=== PATIENT | male | born 1950 | race Caucasian/White ===

== ENCOUNTER 2021-05-21 12:50 | Inpatient (IN) | payer OTHER ==
[~2021-05-21] VITALS: Ht 172.7 cm; Wt 72.3 kg
[2021-05-21] MEDS ORDERED: methylPREDNISolone SOD SUCC 125 MG/2 ML VL IV ONE (13:00)
[2021-05-21 13:48] LABS: Basophils # (auto) 0 10 ^3/uL (0-0.2); Basophils % (auto) 0.8 % (0.0-2.0); Eosinophils # (auto) 0.1 10 ^3/uL (0-0.8); Eosinophils % (auto) 1.6 % (0.0-7.0); Hematocrit 41.7 % (41.0-53.0); Hemoglobin 13.7 g/dL (13.5-17.5); Lymphocytes # (auto) 1.3 10 ^3/uL (0.4-5.4); Lymphocytes % (auto) 20.2 % (10.0-50.0); Mean Corpuscular Hemoglobin 30.7 pg (28.0-32.0); Mean Corpuscular Hgb Conc. 32.8 g/dL (32.0-36.0); Mean Corpuscular Volume 93.6 fL (80.0-100.0); Monocytes # (auto) 0.6 10 ^3/uL (0-1.3); Monocytes % (auto) 10.4 % (0.0-12.0); Neutrophils # (auto) 4.2 10 ^3/uL (1.6-8.6); Red Blood Cells 4.45 10^6/uL (4.5-5.90); Red Cell Distribution Width 16.3 % (11.8-14.3); White Blood Cell 6.2 10^3/uL (4.4-10.8)
[2021-05-21 13:52] LABS: Albumin 3.3 g/dL (3.4-5.0); Anion Gap 6 (5-15); Blood Urea Nitrogen 26 mg/dL (7-18); Calcium 8.8 mg/dL (8.5-10.1); Carbon Dioxide 25 mmol/L (21-32); Chloride 102 mmol/L (98-107); Glucose 109 mg/dL (74-106); Potassium 4.4 mmol/L (3.5-5.1); Sodium 133 mmol/L (136-145)
[2021-05-21 14:01] LABS: Alanine Aminotransferase 34 U/L (16-61); Alkaline Phosphatase 61 U/L (45-117); Aspartate Aminotransferase 21 U/L (15-37); BUN/Creatinine Ratio 32.9; Bilirubin, Total 0.4 mg/dL (0.2-1.0); CRP High Sensitivity 6.99 mg/dL (< 0.3); GFR African American 125 mL/min; GFR Non-African American 104 mL/min
[2021-05-21] MEDS ORDERED: ONDANSETRON HCL 4 MG/2 ML VIAL IV PRN (15:45)
[2021-05-21] MEDS ORDERED: MORPHINE SULFATE INJECTION 2 MG/ML SYRG IV PRN (15:45)
[2021-05-21] MEDS ORDERED: ACETAMINOPHEN 325 MG TAB PO PRN ×2 (15:45)
[2021-05-21] MEDS ORDERED: NITROGLYCERIN 0.4 MG SL TAB SL PRN (15:45)
[2021-05-21] MEDS ORDERED: IOHEXOL 350 MG/ML 100ML IJ ONE (15:56)
[2021-05-21] MEDS: IPRATROPIUM BROM 0.5 MG/2.5ML INH SOL NEB SCH (18:34)
[2021-05-21] MEDS: BUDESONIDE (INHALATION) 0.5 MG/2 ML NEB NEB SCH (18:34)
[2021-05-21] MEDS: ALBUTEROL SULF 2.5 MG/0.5ML(0.5%) NEB SOLN NEB SCH (18:34)
[2021-05-21 18:36] VITALS: BP 108/72
[2021-05-21] MEDS: MORPHINE SULFATE INJECTION 2 MG/ML SYRG IV PRN (19:18)
[2021-05-21 20:00] VITALS: BP 130/95
[2021-05-21] MEDS: FAMOTIDINE 20 MG TAB PO SCH (21:15)
[2021-05-21] MEDS: methylPREDNISolone SOD SUCC 40 MG/ML VL IV SCH (21:15)
[2021-05-21 22:00] VITALS: BP 121/77
[2021-05-21] MEDS: HYDROcodone-ACET 10/325MG TAB PO PRN (22:36)
[2021-05-21] MEDS ORDERED: ALBUAER3 IN (23:36)
[2021-05-21] MEDS ORDERED: HYDR-4798 PO (23:36)
[2021-05-21] MEDS ORDERED: IPRAAER6 IN (23:36)
[2021-05-22] MEDS ORDERED: ZOLPIDEM TARTRATE 5 MG TAB PO ONE (01:00)
[2021-05-22 05:00] VITALS: BP 123/80
[2021-05-22 05:12] LABS: Basophils # (auto) 0 10 ^3/uL (0-0.2); Basophils % (auto) 0.2 % (0.0-2.0); Eosinophils # (auto) 0 10 ^3/uL (0-0.8); Eosinophils % (auto) 0.1 % (0.0-7.0); Hematocrit 39.7 % (41.0-53.0); Lymphocytes # (auto) 0.4 10 ^3/uL (0.4-5.4); Lymphocytes % (auto) 14.6 % (10.0-50.0); Mean Corpuscular Hemoglobin 30.6 pg (28.0-32.0); Mean Corpuscular Hgb Conc. 32.7 g/dL (32.0-36.0); Mean Corpuscular Volume 93.6 fL (80.0-100.0); Monocytes # (auto) 0.1 10 ^3/uL (0-1.3); Monocytes % (auto) 3.2 % (0.0-12.0); Neutrophils % (auto) 81.9 % (37.0-80.0); Red Blood Cells 4.24 10^6/uL (4.5-5.90); Red Cell Distribution Width 15.8 % (11.8-14.3); White Blood Cell 2.4 10^3/uL (4.4-10.8)
[2021-05-22] MEDS: methylPREDNISolone SOD SUCC 40 MG/ML VL IV SCH ×3 (05:38→21:14)
[2021-05-22 05:40] LABS: Calcium 8.7 mg/dL (8.5-10.1); Potassium 4.6 mmol/L (3.5-5.1)
[2021-05-22 05:42] LABS: BUN/Creatinine Ratio 45.1
[2021-05-22] MEDS: HYDROcodone-ACET 10/325MG TAB PO PRN ×3 (05:46→22:02)
[2021-05-22] MEDS: ALBUTEROL SULF 2.5 MG/0.5ML(0.5%) NEB SOLN NEB SCH ×3 (07:31→18:33)
[2021-05-22] MEDS: IPRATROPIUM BROM 0.5 MG/2.5ML INH SOL NEB SCH ×3 (07:31→18:33)
[2021-05-22] MEDS: BUDESONIDE (INHALATION) 0.5 MG/2 ML NEB NEB SCH ×2 (07:32→18:33)
[2021-05-22 09:00] VITALS: BP 140/67
[2021-05-22] MEDS: AZITHROMYCIN 500MG/ 250ML 250 ML IV SCH (09:52)
[2021-05-22] MEDS: FAMOTIDINE 20 MG TAB PO SCH ×2 (09:53→21:14)
[2021-05-22] MEDS: ENOXAPARIN SOD 40 MG/0.4 ML SYRINGE SC SCH (09:53)
[2021-05-22 12:39] LABS: Urine Bacteria NONE SEEN /hpf (None Seen); Urine Blood Negative /uL (Negative); Urine Hyaline Cast FEW /lpf (0 - 2); Urine Specific Gravity 1.035 (1.001-1.035); Urine WBC <1 /hpf (0 - 3)
[2021-05-22 13:00] VITALS: BP 126/73
[2021-05-22] MEDS: MORPHINE SULFATE INJECTION 2 MG/ML SYRG IV PRN (14:33)
[2021-05-22 17:00] VITALS: BP 132/81
[2021-05-22] MEDS ORDERED: ZOLPIDEM TARTRATE 5 MG TAB PO PRN (21:00)
[2021-05-22 22:00] VITALS: BP 155/95
[2021-05-23 05:16] VITALS: BP 149/94
[2021-05-23] MEDS: methylPREDNISolone SOD SUCC 40 MG/ML VL IV SCH ×2 (05:25→14:22)
[2021-05-23] MEDS: IPRATROPIUM BROM 0.5 MG/2.5ML INH SOL NEB SCH ×2 (06:25→11:23)
[2021-05-23] MEDS: BUDESONIDE (INHALATION) 0.5 MG/2 ML NEB NEB SCH (06:26)
[2021-05-23] MEDS: ALBUTEROL SULF 2.5 MG/0.5ML(0.5%) NEB SOLN NEB SCH ×2 (06:26→11:23)
[2021-05-23] MEDS: AZITHROMYCIN 500MG/ 250ML 250 ML IV SCH (08:19)
[2021-05-23] MEDS: ENOXAPARIN SOD 40 MG/0.4 ML SYRINGE SC SCH (08:20)
[2021-05-23] MEDS: FAMOTIDINE 20 MG TAB PO SCH (08:20)
[2021-05-23] MEDS: MORPHINE SULFATE INJECTION 2 MG/ML SYRG IV PRN ×2 (08:21→14:23)
[2021-05-23 09:00] VITALS: BP 154/91
[2021-05-23 13:00] VITALS: BP 129/71
[2021-05-23] MEDS ORDERED: AMOX500T86 PO (14:42)
[2021-05-23] MEDS ORDERED: PRED20TA2 PO (14:42)
[2021-05-23] MEDS ORDERED: IPRA0.00 NEB (14:42)
== END 2021-05-23 15:47 | disposition home or self-care (01) | DRG 193 ==
LOC: ER 12:52 → TELE 15:38 → TELE-WESTW 19:59
PROVIDERS: ADMIT Hospitalist; ATTEND Hospitalist
DX: J18.9 Pneumonia, unspecified organism (principal); J96.01 Acute respiratory failure with hypoxia; J44.1 Chronic obstructive pulmonary disease with (acute) exacerbation; C34.90 Malignant neoplasm of unspecified part of unspecified bronchus or lung; J98.11 Atelectasis; Z20.822 Contact with and (suspected) exposure to COVID-19; J43.9 Emphysema, unspecified; Z82.49 Family history of ischemic heart disease and other diseases of the circulatory system; Z80.1 Family history of malignant neoplasm of trachea, bronchus and lung; Z85.118 Personal history of other malignant neoplasm of bronchus and lung; Z87.891 Personal history of nicotine dependence; Z92.3 Personal history of irradiation; Z86.16 Personal history of COVID-19
CPT/HCPCS: 36415; 71045; 71275; 80048; 80053; 81001; 82728; 83605; 83880; 84484; 85025; 85379; 86141; 87040; 87426; 93005; 93306; 94640; 96374; 96375; G0378

== ENCOUNTER 2021-08-05 12:52 | Inpatient (IN) | payer OTHER ==
[~2021-08-05] VITALS: Ht 172.7 cm; Wt 97.5 kg
[~2021-08-05 12:52] MED LIST: ALBUAER3 IN; AMOX500T86 PO; HYDR-4798 PO; IPRA0.00 NEB; IPRAAER6 IN; PRED20TA2 PO
[2021-08-05] MEDS ORDERED: ALBUTEROL SULF 2.5 MG/0.5ML(0.5%) NEB SOLN NEB PRN (14:15)
[2021-08-05] MEDS ORDERED: MORPHINE SULFATE INJECTION 2 MG/ML SYRG IV PRN (14:15)
[2021-08-05] MEDS ORDERED: ACETAMINOPHEN 500 MG TAB PO PRN (14:15)
[2021-08-05] MEDS ORDERED: PROMETHAZINE HCL 25 MG/ML 1ML IV PRN (14:15)
[2021-08-05] MEDS ORDERED: NITROGLYCERIN 0.4 MG SL TAB SL PRN (14:15)
[2021-08-05] MEDS: D5W/SOD CHLO 0.9% 1,000 ML IV SCH (21:00)
[2021-08-05] MEDS ORDERED: ATORVASTATIN 20 MG TAB PO SCH (22:00)
[2021-08-05] MEDS ORDERED: hydrALAZINE HCL 10 MG TAB PO PRN (22:30)
[2021-08-05] MEDS ORDERED: TEMAZEPAM 15 MG CAP PO ONE (22:30)
[2021-08-05 22:54] LABS: Basophils # (auto) 0 10 ^3/uL (0-0.2); Basophils % (auto) 0.1 % (0.0-2.0); Eosinophils # (auto) 0 10 ^3/uL (0-0.8); Hematocrit 40.8 % (41.0-53.0); Hemoglobin 13.3 g/dL (13.5-17.5); Lymphocytes # (auto) 0.5 10 ^3/uL (0.4-5.4); Lymphocytes % (auto) 7.1 % (10.0-50.0); Mean Corpuscular Hgb Conc. 32.5 g/dL (32.0-36.0); Mean Corpuscular Volume 95.3 fL (80.0-100.0); Monocytes # (auto) 0.6 10 ^3/uL (0-1.3); Monocytes % (auto) 8.3 % (0.0-12.0); Neutrophils # (auto) 6.3 10 ^3/uL (1.6-8.6); Neutrophils % (auto) 84.5 % (37.0-80.0); Nucleated Red Blood Cells % 0.2 %; Red Blood Cells 4.28 10^6/uL (4.5-5.90); Red Cell Distribution Width 16.7 % (11.8-14.3); White Blood Cell 7.5 10^3/uL (4.4-10.8)
[2021-08-05 23:10] LABS: INR 1.16 (0.9-1.15); Partial Thromboplastin Time 27.1 sec (23.6-33.0)
[2021-08-05 23:11] LABS: Albumin 3.3 g/dL (3.4-5.0); Calcium 8.3 mg/dL (8.5-10.1); Potassium 4.3 mmol/L (3.5-5.1)
[2021-08-05 23:19] LABS: BUN/Creatinine Ratio 44.3; Bilirubin, Total 0.4 mg/dL (0.2-1.0); Total Protein 7.2 g/dL (6.4-8.2)
[2021-08-05 23:47] VITALS: BP 153/75
[2021-08-06] VITALS: BP 153/75
[2021-08-06] MEDS: D5W/SOD CHLO 0.9% 1,000 ML IV SCH ×4 (00:15→23:44)
[2021-08-06 05:00] VITALS: BP 131/75
[2021-08-06 09:00] VITALS: BP 143/117
[2021-08-06] MEDS: ENOXAPARIN SOD 40 MG/0.4 ML SYRINGE SC SCH (10:00)
[2021-08-06] MEDS: FAMOTIDINE 20 MG TAB PO SCH (10:40)
[2021-08-06] MEDS: ASPirin 81 mg TAB PO SCH (10:40)
[2021-08-06] MEDS: MORPHINE SULFATE INJECTION 2 MG/ML SYRG IV PRN ×3 (12:40→22:21)
[2021-08-06 13:00] VITALS: BP 152/94
[2021-08-06 17:00] VITALS: BP 140/98
[2021-08-06 22:00] VITALS: BP 145/92
[2021-08-07] MEDS: MORPHINE SULFATE INJECTION 2 MG/ML SYRG IV PRN ×5 (03:29→21:59)
[2021-08-07 05:00] VITALS: BP 156/96
[2021-08-07 08:14] LABS: Potassium 4.7 mmol/L (3.5-5.1)
[2021-08-07 08:21] LABS: Albumin 2.9 g/dL (3.4-5.0); BUN/Creatinine Ratio 38.3; Bilirubin, Total 0.3 mg/dL (0.2-1.0); Calcium 7.8 mg/dL (8.5-10.1); Total Protein 5.7 g/dL (6.4-8.2)
[2021-08-07 09:00] VITALS: BP 162/101
[2021-08-07] MEDS: ENOXAPARIN SOD 40 MG/0.4 ML SYRINGE SC SCH (10:00)
[2021-08-07] MEDS: ASPirin 81 mg TAB PO SCH (10:00)
[2021-08-07] MEDS: FAMOTIDINE 20 MG TAB PO SCH (10:00)
[2021-08-07] MEDS ORDERED: ANGIOMAX 250 MG VIAL IV ONE (10:45)
[2021-08-07] MEDS ORDERED: LIDOCAINE 2%HCL (LOCAL ANESTH.) INJ 20ML MDV ONE (10:45)
[2021-08-07] MEDS ORDERED: MIDAZOLAM HCL 2MG/2ML 2ml VIAL (1mg/ml) ONE (10:45)
[2021-08-07] MEDS ORDERED: fentaNYL CITRATE 100 MCG/2 ML VL ONE (10:45)
[2021-08-07] MEDS ORDERED: VERAPAMIL 2.5MG/ML INJ 2ML VIAL IV ONE (10:45)
[2021-08-07] MEDS ORDERED: HEPARIN SODIUM (PORCINE) 5000 UNITS/ML 1ML VIAL ONE (10:45)
[2021-08-07] MEDS ORDERED: SODIUM CHL 0.9% 0 ML ONE (10:46)
[2021-08-07] MEDS ORDERED: HYDROmorphone HCL 2 MG/ML VL ONE (11:13)
[2021-08-07 13:00] VITALS: BP 157/95
[2021-08-07] MEDS: SODIUM CHLOR 0.9% PF (SALINE LOCK) 10ML VIAL/SYR IV SCH ×2 (14:00→23:13)
[2021-08-07 17:00] VITALS: BP 128/74
[2021-08-07 22:00] VITALS: BP 149/89
[2021-08-07] MEDS: D5W/SOD CHLO 0.9% 1,000 ML IV SCH (23:12)
[2021-08-08] MEDS: MORPHINE SULFATE INJECTION 2 MG/ML SYRG IV PRN ×3 (03:00→12:11)
[2021-08-08 05:00] VITALS: BP 144/77
[2021-08-08] MEDS: SODIUM CHLOR 0.9% PF (SALINE LOCK) 10ML VIAL/SYR IV SCH ×2 (05:59→14:00)
[2021-08-08 09:00] VITALS: BP 153/97
[2021-08-08] MEDS: ENOXAPARIN SOD 40 MG/0.4 ML SYRINGE SC SCH (09:32)
[2021-08-08] MEDS: ASPirin 81 mg TAB PO SCH (09:32)
[2021-08-08] MEDS: FAMOTIDINE 20 MG TAB PO SCH (09:32)
[2021-08-08] MEDS: D5W/SOD CHLO 0.9% 1,000 ML IV SCH (09:32)
[2021-08-08] MEDS ORDERED: IPRA0.00 NEB (10:15)
[2021-08-08] MEDS ORDERED: ATOR20TA50 PO (10:15)
[2021-08-08] MEDS ORDERED: IPRAAER6 IN (10:15)
[2021-08-08] MEDS ORDERED: LISI-275 PO (10:15)
[2021-08-08 14:36] VITALS: BP 145/66
[2021-08-10 11:26] LABS: Hepatitis A Total Antibody Negative (Negative)
[2021-08-13 10:41] LABS: Hepatitis B Surface Antibody Negative (Negative)
[2021-08-13 15:54] LABS: Hepatitis C Antibody Positive (Negative)
== END 2021-08-08 16:40 | disposition home or self-care (01) | DRG 280 ==
LOC: TELE-CENTR 20:34
PROVIDERS: ADMIT Hospitalist; ATTEND Hospitalist
PROC: B211YZZ Fluoroscopy of Multiple Coronary Arteries using Other Contrast (ICD-10-PCS; principal; 2021-08-07)
PROC: 4A023N7 Measurement of Cardiac Sampling and Pressure, Left Heart, Percutaneous Approach (ICD-10-PCS; 2021-08-07)
DX: I21.4 Non-ST elevation (NSTEMI) myocardial infarction (principal); J96.00 Acute respiratory failure, unspecified whether with hypoxia or hypercapnia; J44.1 Chronic obstructive pulmonary disease with (acute) exacerbation; I25.10 Atherosclerotic heart disease of native coronary artery without angina pectoris; F17.200 Nicotine dependence, unspecified, uncomplicated; R79.89 Other specified abnormal findings of blood chemistry; Z20.822 Contact with and (suspected) exposure to COVID-19; I10 Essential (primary) hypertension; Z80.1 Family history of malignant neoplasm of trachea, bronchus and lung; Z82.49 Family history of ischemic heart disease and other diseases of the circulatory system; Z87.01 Personal history of pneumonia (recurrent); Z99.81 Dependence on supplemental oxygen
CPT/HCPCS: 36415; 36600; 71045; 76705; 80053; 80061; 82805; 83036; 84484; 85025; 85379; 85610; 85730; 86704; 86706; 86708; 86803; 86850; 86900; 86901; 87081; 87340; 87426; 93005; 93306; 93454; 99152; 99153; G0378; J2250; J7042